=== PATIENT | female | born 1970 | race African-American/Black ===

== ENCOUNTER 2017-12-18 05:29 | Day surgery (SDC) | payer OTHER ==
[2017-12-18] MEDS: LACTATED RINGER'S 1,000 ML IV (06:41)
[2017-12-18] MEDS ORDERED: CEFAZOLIN 1 GM INJ (07:00)
[2017-12-18] MEDS ORDERED: SUCCINYLCHOLINE CHLORIDE 100 MG/5 ML SYG IV (07:00)
[2017-12-18] MEDS ORDERED: PROPOFOL 20 ML (07:05)
[2017-12-18] MEDS ORDERED: DEXAMETHASONE 4 MG/ML 1 ML INJ (07:05)
[2017-12-18] MEDS ORDERED: FENTAnyl 50 MCG/ML VIAL (07:05)
[2017-12-18] MEDS ORDERED: ONDANSETRON 4 MG INJ (07:05)
[2017-12-18] MEDS ORDERED: MIDAZOLAM 1 MG/ML 2 ML INJ (07:05)
[2017-12-18] MEDS ORDERED: LIDOCAINE 2% (SDV) 5 ML INJ (07:05)
[2017-12-18] MEDS ORDERED: FENTAnyl 50 MCG/ML VIAL IV (07:30)
[2017-12-18] MEDS ORDERED: ONDANSETRON 4 MG INJ IV ×2 (07:30→09:00)
[2017-12-18] MEDS: LIDOCAINE 1%/EPI 30 ML INJ (07:54)
[2017-12-18] MEDS ORDERED: PHENYLephrine (100 MCG/ML) 5ML SYG (08:09)
[2017-12-18] MEDS: BACITRACIN 0.9 GM OINT (08:28)
[2017-12-18] MEDS ORDERED: ACETAMINOPHEN 325 MG TAB PO (09:00)
[2017-12-18] MEDS ORDERED: HYDROCODONE/APAP (5/325) TAB PO (09:00)
[2017-12-18] MEDS: FENTAnyl 50 MCG/ML VIAL IV ×2 (09:01→09:09)
== END 2017-12-18 10:39 | disposition home or self-care (01) ==
LOC: SDS 05:29
DX: D23.39 Other benign neoplasm of skin of other parts of face (principal)
CPT/HCPCS: 11443; 84703; 88304